=== PATIENT | male | born 1940 | race Caucasian/White ===

== ENCOUNTER → 2018-05-30 | Outpatient (CLI) | payer MEDICARE, OTHER ==
[~2018-05-30] MED LIST: ACET-1757 PO; AMIO200T42 PO; ASPI81TA45 PO; ATOR20TA37 PO; BENZ-17 PO; BISA-49 PO; BISA10SU54 PR; CLOB0.5P PO; CYCL-259 PO; DEXT30SU8 PO; DOCU-131 PO; DOXE25CA PO; ENAL5TAB70 PO; FURO-92 PO; HYDR-3307 PO; HYDR5SYR PO; LEVO500T47 PO; MAGN30OR PO; METO25TA35 PO; NAPR220C2 PO; OMEP-110 PO; PANT40TA3 PO; PHEN100C PO; POLY17PO5 PO; POTA10TA11 PO; PRED10TA PO; SODI30SP NS; WARF2.5T PO; magnesium PO; ranitidine PO
== END | disposition home or self-care (01) ==
LOC: CFH 08:17
PROVIDERS: ATTEND Internal Medicine
DX: G31.9 Degenerative disease of nervous system, unspecified (principal); I67.82 Cerebral ischemia
CPT/HCPCS: 70551